=== PATIENT | female | born 1945 | race Caucasian/White ===

== ENCOUNTER 2017-03-27 08:19 | Day surgery (SDC) | payer MEDICARE, BC ==
[~2017-03-27 08:19] MED LIST: LACTATED RINGERS 1,000 ML IV.SOLN IV ONE; LIDOCAINE HCL/PF 2% 100 MG/5 ML VIAL IJ ONE; PROPOFOL 500 MG/50 ML VIAL IV ONE; SALINE FLUSH 10 ML DISP.SYRIN IVF ONE
--- NOTE | 2017-03-27 13:51 | Operative Note ---
SURGEON: Dixon Gama MD ANESTHESIA: MAC anesthesia. ESTIMATED BLOOD LOSS: 300 mL COMPLICATIONS: None. FINDINGS: 1. Tiny polyp in the right colon. 2. Normal EGD. 3. Moderate sigmoid diverticulosis. PREOPERATIVE DIAGNOSES: 1. History of Prado's esophagitis. 2. History of colon polyps. POSTOPERATIVE DIAGNOSES: 1. History of Prado's esophagitis. 2. History of colon polyps. 3. Colon polyp. PROCEDURES PERFORMED: 1. Esophagogastroduodenoscopy (EGD). 2. Colonoscopy with cold biopsy polypectomy. DESCRIPTION OF PROCEDURES: Patient was brought to the endoscopy suite and placed in the left lateral decubitus position. MAC anesthesia was administered by the lna. The endoscope was inserted and passed to the second portion of the duodenum. There was no abnormality at all on the EGD. The duodenum and stomach were normal. The esophagus was completely normal with no evidence of esophagitis. The endoscope was removed. A rectal exam was performed. The colonoscope was inserted and passed to the cecum. The ileocecal valve and appendiceal orifice were identified. The prep was good. The colonoscope was slowly retracted being careful to expect all godfrey. In the right colon, there was a very small sessile polyp which was completely removed with the cold biopsy forceps. In the sigmoid colon, there was moderate sigmoid diverticulosis. Greater than 6 minutes withdrawal time was done. The patient tolerated the procedure well. DISPOSITION: I recommend a repeat colonoscopy in 5 years. MTDD
== END 2017-03-27 08:20 ==
LOC: OPSURG 08:19
PROVIDERS: ATTEND Colon & Rectal Surgery
DX: Z87.19 Personal history of other diseases of the digestive system (principal); K57.30 Diverticulosis of large intestine without perforation or abscess without bleeding; K63.5 Polyp of colon
CPT/HCPCS: 43235; 45380; 88305; J2001; J2704; J7120; S1016